=== PATIENT | male | born 1965 | race Hispanic/Latino ===

== ENCOUNTER 2025-05-10 12:45 | Inpatient (IN) | payer MEDICAID, OTHER ==
[2025-05-10] VITALS (17 sets, daily range): BP systolic 133–164; BP diastolic 56–93; PULSE 62–88; RESP 14–18; TEMP 98–98.6; O2SAT 99
[~2025-05-10] VITALS: Ht 162.6 cm; Wt 116.4 kg
--- NOTE | 2025-05-10 13:05 | EKG ---
[facility] Test Date: 2025-05-10 Test Time: 13:00:31 Pat Name: UMU LUCERO Department: EDH Room: ED Gender: M Pipe Maker: [id number] [phone] 1965 Requested By: SHILPA LAWSON Order Number: [id number] Reading MD: Torie Cottrell Measurements Intervals [place] Rate: 67 P: -16 [place]: 201 QRS: -37 QRSD: 106 T: 73 QT: 394 QTc: 417 Interpretive Statements Sinus rhythm Left axis deviation Anterior infarct, old No previous ECG available for comparison Electronically Signed On 05-11-2025 14:07:35 CDT by Torie Cottrell Please click the below link to view image of tracing.
[2025-05-10 13:31] LABS: IMMATURE GRANULOCYTE ABSOLUTE 0.07 K/uL (0-1); NUCLEATED RED BLOOD CELLS 0.0 % (0.0-0.19); PLATELET COUNT (AUTO) 350 K/uL (130-400); RED BLOOD CELL COUNT(AUTO) 4.01 MIL/uL (4.50-6.20); RED CELL DISTRIBUTION WIDTH 12.5 % (11.0-15.5); WHITE BLOOD COUNT (AUTO) 13.4 K/uL (4.8-10.8)
[2025-05-10 13:49] LABS: ASPARTATE AMINOTRANSFERASE 7.0 U/L (10-37); GLOMERULAR FILTR. RATE CALC 6.0 mL/min (>90); GLUCOSE,RANDOM 160.0 mg/dL (70-105); INR 0.96 (0.85-1.15); SODIUM SERUM 130.0 mmol/L (136-145); TOTAL PROTEIN, SERUM 7.8 g/dL (6.0-8.3)
[2025-05-10 13:53] LABS: CREATININE 9.4 mg/dL (0.5-1.3); UREA NITROGEN, BLOOD 105.0 mg/dL (7-18)
--- NOTE | 2025-05-10 14:00 | NUR ---
CRITICAL LAB RESULTS REPORTED TO ER DOCTOR.
--- NOTE | 2025-05-10 15:30 | NUR ---
PLACED IN HWD
[2025-05-10] MEDS ORDERED: LACTULOSE 20 GM/30 ML UDCUP PO PRN (16:00)
[2025-05-10] MEDS ORDERED: DEXTROSE 50%-WATER 50 ML DISP.SYRIN IV PRN (16:00)
[2025-05-10] MEDS ORDERED: NITROGLYCERIN 0.4 MG SL TAB SL PRN (16:00)
[2025-05-10] MEDS ORDERED: guaiFENesin-DM 200/20MG 10ML PO PRN (16:00)
[2025-05-10] MEDS ORDERED: MAG/ALUM/SIMETH 30 ML UDCUP PO PRN (16:00)
[2025-05-10] MEDS ORDERED: GLUCAGON 1MG KIT 1 MG ML IM PRN (16:00)
[2025-05-10] MEDS ORDERED: FAMOTIDINE 20MG VIAL IV PRN (16:00)
[2025-05-10] MEDS ORDERED: MAGNESIUM 2GM PREMIX 50ML 50 ML IV PRN (16:00)
--- NOTE | 2025-05-10 16:02 | ERN ---
ED Note History of Present Illness Stated Complaint: STATES NEEDS DIALYSIS Chief Complaint: Other Problems Time Seen by MD: 12:48 Dictation: 59-year-old male end-stage renal disease on dialysis skipped four days due to the fact that he is from out of town Allergies: Coded Allergies: oxytetracycline (Unverified Allergy, Unknown, 05/10/25) Past Medical History Past Medical History: Diabetes-Type II, Renal Failure Surgical History: LAVA Review of System Dictation Constitutional: Negative for fever,chills, and weight loss Eyes: Negative for injury, pain,redness, and discharge ENT: Negative for injury,pain or swelling Cardiovascular: Negative for chest pain, palpitations, and edema Respiratory: Negative for shortness of breath, cough, and wheezing, Abdomen/GI: Negative for abdominal pain, nausea, vomiting, diarrhea, and constipation Back: Negative for injury and pain : Negative for injury, bleeding and discharge MS/Extremity: Negative for injury and deformity Skin: Negative for rash, and discoloration Neuro: Per HPI Initial Vital Sign VS Vital Signs Date Time Temp Pulse Resp B/P (MAP) Pulse Ox O2 Delivery O2 Flow Rate FiO2 05/10/25 12:46 98.1 70 16 164/78 95 Room Air 0 Physical Exam Dictation General: awake, alert, NAD Head/Face: Normocephalic, atraumatic Eyes: PERRL, EOMI, vision at baseline ENT: oral cavity clear, TMs clear, no signs of infection Neck: Trachea midline, supple, no nuchal rigidity Cardiovascular: RRR, normal S1/S2, No MRGs, no JVD Respiratory: CTAB, no respiratory distress, No rales or wheezes Abdomen: Soft, non-tender, non-distended, normal bowel sounds, no guarding or r ebound. Skin: Warm, dry, normal turgor, no rash MS/Extremity: Pulses equal, no cyanosis, neurovascular intact, FROM Neuro: COAx4, GCS 15, strength 5/5, CN 2-12 intact, normal cerebellar exam, normal gait, Psych: Normal behavior, mood, and affect normal Results (Laboratory/Radiology) Laboratory/Radiology Laboratory Tests Test 05/10/25 13:26 White Blood Count 13.4 K/uL (4.8-10.8) H Red Blood Count 4.01 MIL/uL (4.50-6.20) L Hemoglobin 13.2 g/dL (14.0-18.0) L Hematocrit 39.1 % (42-54) L Mean Corpuscular Volume 97.5 fL (79-99) Mean Corpuscular Hemoglobin 32.9 pg (27.0-33.0) Mean Corpuscular Hemoglobin Concent 33.8 g/dL (32.0-36.0) Red Cell Distribution Width 12.5 % (11.0-15.5) Platelet Count 350 K/uL (130-400) Mean Platelet Volume 10.1 fL (7.5-10.5) Immature Granulocyte % (Auto) 0.5 % (0-1) Neutrophils (%) (Auto) 63.0 % (40.0-77.0) Lymphocytes (%) (Auto) 22.2 % (21.0-51.0) Monocytes (%) (Auto) 7.7 % (3.0-13.0) Eosinophils (%) (Auto) 5.7 % (0.0-8.0) Basophils (%) (Auto) 0.9 % (0.0-5.0) Neutrophils # (Auto) 8.4 K/uL (1.8-7.7) H Lymphocytes # (Auto) 3.0 K/uL (1.0-4.8) Monocytes # (Auto) 1.0 K/uL (0.1-1.0) Eosinophils # (Auto) 0.77 K/uL (0.00-0.70) H Basophils # (Auto) 0.12 K/uL (0.00-0.20) Absolute Immature Granulocyte (auto 0.07 K/uL (0-1) Nucleated Red Blood Cells 0.0 % (0.0-0.19) Prothrombin Time 10.2 SEC (9.6-11.6) Prothromb Time International Ratio 0.96 (0.85-1.15) Activated Partial Thromboplast Time 29.8 SEC (26.3-35.5) Sodium Level 130 mmol/L (136-145) L Potassium Level 6.3 mmol/L (3.5-5.1) *H Chloride Level 99 mmol/L (101-111) L Carbon Dioxide Level 16 mmol/L (21-32) L Blood Urea Nitrogen 105 mg/dL (7-18) *H Creatinine 9.4 mg/dL (0.5-1.3) *H Glomerular Filtration Rate Calc 6 mL/min (>90) Random Glucose 160 mg/dL (70-105) H Total Calcium 7.7 mg/dL (8.5-10.1) L Total Bilirubin 0.4 mg/dL (0.2-1.0) Direct Bilirubin 0.1 mg/dL (0.0-0.3) Aspartate Amino Transf (AST/SGOT) 7 U/L (10-37) L Alanine Aminotransferase (ALT/SGPT) 17 U/L (12-78) Alkaline Phosphatase 97 U/L (50-136) Troponin I High Sensitivity 20 ng/L (4-75) Total Protein 7.8 g/dL (6.0-8.3) Albumin 3.5 g/dL (3.5-5.0) Labs Reviewed?: Yes EKG Comment: Heart rate 67 normal sinus rhythm normal intervals no STEMI ED Course ED Course Orders Procedure Category Date Status Time 12 Lead Ekg Tracing- EKG 05/10/25 Complete Technical 12:55 Basic Metabolic Panel LAB 05/10/25 Complete 12:55 Cbc With Differential LAB 05/10/25 Complete 12:55 Pt And Ptt LAB 05/10/25 Complete 12:55 Troponin I High LAB 05/10/25 Complete Sensitivity 12:55 Hepatic Function Panel LAB 05/10/25 Complete 12:55 Calcium Gluc 1gm PHA 05/10/25 Complete (Calcium Gluc 1gm 14:05 Sodium Bicarb 50meq PHA 05/10/25 Complete 50ml Vial (Sodium Bi 14:30 Current Medications Medications (Trade) Dose Ordered Sig/Javon Route PRN Reason Start Time Stop Time Status Last Admin Dose Admin Calcium Gluconate (Calcium Gluc 1gm Vial) 2 gm PROTOCOL STAT IVPB 05/10/25 14:05 05/10/25 14:07 DC Sodium Bicarbonate (Sodium Bicarb 50meq 50ml Vial) 100 meq ONCE ONCE IV 05/10/25 14:30 05/10/25 14:31 DC Vital Signs Date Time Temp Pulse Resp B/P (MAP) Pulse Ox O2 Delivery O2 Flow Rate FiO2 05/10/25 12:46 98.1 70 16 164/78 95 Room Air 0 Medical Decision Making MDM MDM: Differential diagnosis: Rationale: Tests considered and ordered secondary to shared decision making include: labs, ECG and radiology Previous outside records reviewed: Old ER visits. Risk of complication and/or morbidity or mortality of patient management: None Medications-Per medication reconciliation Need for hospitalization: Patient does meet criteria for hospitalization. Need for emergency major/minor surgery: No There are no social concerns with this patient. Prescription drug management Prescriptions will include symptomatic care Patient's prior external medical records from other ER visits were reviewed by me as indicated. Prior testing and results from previous visits were reviewed. Prior tests were taken into account with medical decision making and resource utilization, independent historian/historians were used to obtain complete medical history. I independently interpreted the test that were performed, results were reviewed by me and considered findings on radiology if ordered. Medical management and examination interpretation discussions were had by me with other qualified healthcare professionals as indicated for the patient's care. 59-year-old end-stage renal disease hyperkalemia admitting to Medicine for dialysis. Critical Care Note Comment(s) Total critical care time was 33 minutes. Excluding time for procedures. Management of critically ill patient with concern for acute decompensation. Management included interpretation of laboratory values and imaging, hemodynamics, time for consultation with consultants and admitting physician. DX & DISP Disposition: Inpatient Departure Impression: Primary Impression: ESRD needing dialysis Additional Impression: Hyperkalemia Condition: Stable Referrals: SELF,REFERRAL (PCP) SHILPA LAWSON MD May 10, 2025 16:02
--- NOTE | 2025-05-10 16:32 | NUR ---
REQUSETED CALCIUM GLUCONATE FROM PHARMACY
[2025-05-10] MEDS: SODIUM BICARB 50MEQ 50ML VIAL IV ONE (16:35)
[2025-05-10] MEDS: CALCIUM GLUC 1GM 2 GM in 0.9%NACL 100ML 100 ML IV SCH (17:04)
[2025-05-10] MEDS: CALCIUM GLUC 1GM/10ML VIAL IVPB STA (17:07)
--- NOTE | 2025-05-10 17:43 | HP ---
[facility] HISTORY AND PHYSICAL Date of Service: May 10, 2025 Time of Service: 17:36 PCP: Dr. Dixon in [place] Admitting: Dr Faust Allergies: Oxy tetracycline HISTORY OF PRESENT ILLNESS: [ Patient is 59 years old male with a past medical history of diabetes, hypertension, hyperlipidemia, kidney disease with dialysis Saturday, gastritis, anxiety, depression, left AV fistula, who came to emergency department in the need of dialysis. Patient stated that normally he lives in the [place] but recently he was notified that his father so [facility]. Patient stated that since normally has dialysis in [place] he was not able to receive any dialysis here in [place] so he decided to come to [facility] for dialysis. Last dialysis was Saturday five days ago. Patient stated that he feels fine he does not believe there is anything going on but he also understands that he has blood in his to be filtrated. Most recent vital signs temperature 98.1 respiration 20 pulse 66 blood pressure 167/90 patient is on room air satting 99%. WBC 13.4 hemoglobin 13.2 hematocrit 39.1 platelets 380 sodium 130 potassium 6.3 CO2 16 creatinine 9.4 BUN 105 GFR six glucose 160 calcium 7.7 troponin negative x1. Patient will be admitted under hospitalist care for further evaluation/recommendations. A.m. labs. Dr. Chávez online project manager will be consulted for dialysis] REVIEW OF SYSTEMS CONSTITUTIONAL: Denies fevers, chills, or night sweats. No unintentional weight loss reported. NEUROLOGICAL: Denies headache, amaurosis fugax, motor weakness, sensory deficit, vertigo/spinning sensation, gait abnormalities, or tremors. ENT: No hearing loss, otalgia, otorrhea, rhinitis, rhinorrhea, hoarseness, or sore throat. CARDIOVASCULAR: Denies any exertional angina, dyspnea on exertion, orthopnea, paroxysmal nocturnal dyspnea, palpitations, life-threatening arrhythmias, claudi cation. PULMONARY: Denies any shortness of breath, cough, phlegm/sputum, hemoptysis, pleuritic chest pain. SLEEP: Denies morning headaches, daytime somnolence or napping. Denies difficulty falling asleep, staying asleep, waking from sleep. Denies knowledge of snoring. GASTROINTESTINAL: Denies any type of dysphagia to either liquids or solids. Denies nausea, vomiting, pyrosis, early satiety, abdominal pain, diarrhea, constipation, or changes in stool consistency or caliber. Denies coffee-ground emesis, hematemesis, hematochezia, or melanotic stools. GENITOURINARY: Denies frequency, urgency, nocturia, hematuria or incontinence (Storage/Irritative symptoms.) Low urinary stream, straining to void, urinary intermittency or hesitancy, splitting of the voiding stream, terminal dribbling. ENDOCRINOLOGIC: Denies polyuria, polydipsia, polyphagia or heat/cold intolerances. HEMATOLOGIC: Denies thrombophilia/previous clots, or coagulopathy/bleeding disorders. ONCOLOGIC: Denies personal history of malignancy. DERMATOLOGIC: Denies rashes or pruritus. PSYCHIATRIC: Denies any suicidal or homicidal ideation. Denies hallucinations. PAST MEDICAL HISTORY: [ ESRD on dialysis Saturday, diabetes, hypertension, hyperlipidemia, gastritis, anxiety, depression ] PAST SURGICAL HISTORY: [ AV fistula left arm ] PAST SOCIAL HISTORY: [ Patient lives in [place] with his family ] FAMILY HISTORY: [ Noncontributory. ] Coded Allergies: oxytetracycline (Unverified Allergy, Unknown, 05/10/25) PHYSICAL EXAM GENERAL APPEARANCE: The patient is awake, alert, and oriented, in no acute cardiopulmonary distress. NEUROLOGICAL: Cranial nerves II-XII grossly intact. Motor is 5/5 in bilateral upper and lower extremities proximal to distal. No sensory deficits. HEENT: Face is symmetric. Pupils are equal and reactive. Extraocular movements are intact. NECK: Supple. No JVD. No thyromegaly. No submental, submandibular, pre- /postauricular, occipital or supraclavicular lymphadenopathy. CHEST: Normal chest expansion. No Telemetry. LUNGS: Absence of any rales, rhonchi or any wheezing. CARDIOVASCULAR: Regular. S1 and S2 normal. No appreciable rubs, murmurs or gallops. ABDOMEN: Soft, nontender, and nondistended. There is no rebound, voluntary guarding, or rigidity. : Deferred. No Bui. EXTREMITIES: Non-edematous and not cyanotic. No clubbing. Good capillary refill. SKIN: No skin breakdown. Vital Sign (Last 24 Hours) 05/10/25 16:00 Temp 98.1 Pulse 66 Resp 20 B/P (MAP) 167/90 Pulse Ox 99 O2 Delivery Room Air* O2 Flow Rate 0 FiO2 21 LABS: Laboratory: Test 05/10/25 16:45 05/10/25 13:26 Range/Units Whole Blood Glucose 136 H 70-110 MG/DL White Blood Count 13.4 H 4.8-10.8 K/uL Red Blood Count 4.01 L 4.50-6.20 MIL/uL Hemoglobin 13.2 L 14.0-18.0 g/dL Hematocrit 39.1 L 42-54 % Mean Corpuscular Volume 97.5 79-99 fL Mean Corpuscular Hemoglobin 32.9 27.0-33.0 pg Mean Corpuscular Hemoglobin Concent 33.8 32.0-36.0 g/dL Red Cell Distribution Width 12.5 11.0-15.5 % Platelet Count 350 130-400 K/uL Mean Platelet Volume 10.1 7.5-10.5 fL Immature Granulocyte % (Auto) 0.5 0-1 % Neutrophils (%) (Auto) 63.0 40.0-77.0 % Lymphocytes (%) (Auto) 22.2 21.0-51.0 % Monocytes (%) (Auto) 7.7 3.0-13.0 % Eosinophils (%) (Auto) 5.7 0.0-8.0 % Basophils (%) (Auto) 0.9 0.0-5.0 % Neutrophils # (Auto) 8.4 H 1.8-7.7 K/uL Lymphocytes # (Auto) 3.0 1.0-4.8 K/uL Monocytes # (Auto) 1.0 0.1-1.0 K/uL Eosinophils # (Auto) 0.77 H 0.00-0.70 K/uL Basophils # (Auto) 0.12 0.00-0.20 K/uL Absolute Immature Granulocyte (auto 0.07 0-1 K/uL Nucleated Red Blood Cells 0.0 0.0-0.19 % Prothrombin Time 10.2 9.6-11.6 SEC Prothromb Time International Ratio 0.96 0.85-1.15 Activated Partial Thromboplast Time 29.8 26.3-35.5 SEC Sodium Level 130 L 136-145 mmol/L Potassium Level 6.3 *H 3.5-5.1 mmol/L Chloride Level 99 L 101-111 mmol/L Carbon Dioxide Level 16 L 21-32 mmol/L Blood Urea Nitrogen 105 *H 7-18 mg/dL Creatinine 9.4 *H 0.5-1.3 mg/dL Glomerular Filtration Rate Calc 6 >90 mL/min Random Glucose 160 H 70-105 mg/dL Total Calcium 7.7 L 8.5-10.1 mg/dL Total Bilirubin 0.4 0.2-1.0 mg/dL Direct Bilirubin 0.1 0.0-0.3 mg/dL Aspartate Amino Transf (AST/SGOT) 7 L 10-37 U/L Alanine Aminotransferase (ALT/SGPT) 17 12-78 U/L Alkaline Phosphatase 97 50-136 U/L Troponin I High Sensitivity 20 4-75 ng/L Total Protein 7.8 6.0-8.3 g/dL Albumin 3.5 3.5-5.0 g/dL Current Medications Medications (Trade) Dose Ordered Sig/Javon Route PRN Reason Start Time Stop Time Status Last Admin Dose Admin Acetaminophen (TYLenol 325MG TAB) 650 mg Q4H PRN PO MILD PAIN (1-3) 05/10/25 16:00 06/09/25 15:59 Acetaminophen (TYLenol 325MG TAB) 650 mg Q6H PRN PO MILD PAIN (1-3) 05/10/25 16:00 05/10/25 15:57 DC Acetaminophen (TYLenol 325MG TAB) 650 mg Q6H PRN PO TEMPERATURE GREATER THAN 101.5 05/10/25 16:00 06/09/25 15:59 Al Hydroxide/Mg Hydroxide (MAALox PLUS 30ML) 30 ml Q6H PRN PO INDIGESTION 05/10/25 16:00 06/09/25 15:59 Calcium Gluconate (Calcium Gluc 1gm Vial) 2 gm PROTOCOL STAT IVPB 05/10/25 14:05 05/10/25 14:07 DC Calcium Gluconate 2 gm/Sodium Chloride 100 ml @ 50 mls/hr ONCE IV 05/10/25 17:00 05/10/25 22:00 05/10/25 17:06 50 MLS/HR Dextrose (D50w) 50 ml AD PRN IV HYPOGLYCEMIA PROTOCOL 05/10/25 16:00 06/09/25 15:59 Diphenhydramine HCl (BENAdryl INJ) 25 mg Q6H PRN IV SEVERE ITCHING/RASH 05/10/25 16:00 06/09/25 15:59 Famotidine (Pepcid 20mg Vial) 20 mg BID IV 05/10/25 21:00 06/09/25 20:59 Famotidine (Pepcid 20mg Vial) 20 mg BID PRN IV NAUSEA/VOMITING 05/10/25 16:00 05/10/25 15:57 DC Glucagon (Glucagon 1mg Kit) 1 mg AD PRN IM HYPOGLYCEMIA PROTOCOL 05/10/25 16:00 06/09/25 15:59 Guaifenesin/ Dextromethorphan (RobiTUSSin DM 200/20MG 10ML) 10 ml Q4H PRN PO COUGH 05/10/25 16:00 06/09/25 15:59 Hydralazine HCl (APRESOLine 20MG INJ) 10 mg Q6H PRN IV For:SBP above 160;DBP above 90 05/10/25 16:00 06/09/25 15:59 Insulin Human Regular (humuLIN R 100 UNIT/ML 3ML) INSULIN SLIDING SCAL... ACHS SQ 05/10/25 16:30 06/09/25 16:29 Ketorolac Tromethamine (toRADol) 15 mg Q8H PRN IV MODERATE PAIN (4-6) 05/10/25 16:00 05/15/25 15:59 Lactulose (Constulose 20gm/ 30ml Udcup) 20 gm BID PRN PO CONSTIPATION 05/10/25 16:00 06/09/25 15:59 Magnesium Sulfate 50 ml @ 0 mls/hr PROTOCOL PRN IV other 05/10/25 16:00 06/09/25 15:59 Morphine Sulfate (morPHINE 2MG SYG) 1 mg Q4H PRN IVP SEVERE PAIN (7-10) 05/10/25 16:00 05/17/25 15:59 Nitroglycerin (Nitrostat) 0.4 mg PROTOCOL PRN SL CHEST PAIN 05/10/25 16:00 06/09/25 15:59 Ondansetron HCl (zoFRAN 4MG INJ) 4 mg Q6H PRN IV NAUSEA/VOMITING 05/10/25 16:00 06/09/25 15:59 Zolpidem Tartrate (AmbIEN) 5 mg HS PRN PO INSOMNIA 05/10/25 16:00 06/09/25 15:59 DIAGNOSTICS / RADIOLOGY: [ ] ASSESSMENT: [ In need of emergency dialysis POA ESRD on dialysis Saturday POA Uncontrolled diabetes mellitus type 2 with hyperglycemia POA Uncontrolled hypertension POA Hyperlipidemia POA Gastritis POA Anxiety POA Depression POA Left arm AV fistula Leukocytosis WBC 13.4 Electrolyte imbalance hyponatremia 130 ] PLAN: [ Patient will be admitted to medical-surgical floor with telemetry Nephrology consultation for ESRD needing dialysis A.m. labs Chest x-ray Urinalysis Heparin per for prophylaxis Hyper and hypoglycemia protocol Hypomagnesemia protocol Medication reconciliation to be performed once medication will be entered to the computer ] ADVANCED CARE PLANNING 1. Which of the following were discussed? Hospice Care - Yes / No Therapeutic options - Yes / No Advance Directives - Yes / No Other discussions - 2. Discussed with who? Patient 3. Voluntary nature of this service was explained to the patient? Yes / No 4. Amount of time spent - ___ more than 35 minutes ____ 5. Reviewed by Physician? (if this service was performed by NPP) Yes / No ATTESTATION BY PHYSICIAN I have seen and examined the patient. I reviewed the documentation, medical decision making, and treatment plan as noted by the mid-level provider above. I agree with the findings and plan of care. RAMANDEEP Fernandez MD DIRECTOR OF GLOBAL SALES May 10, 2025 17:43
--- NOTE | 2025-05-10 17:52 | NUR ---
NEPHRO DR HERRERA CALLED BACK. STAT DIALYSIS FOR THE PATIENT AND INFORM THE DIALYSIS TEAM.
--- NOTE | 2025-05-10 18:00 | NUR ---
CONTENT DEVELOPER WARP TESTER CALLED AT THIS TIME TO NOTIFY OF EMERGENT DIALYSIS./FAUSTINO
--- NOTE | 2025-05-10 18:10 | NUR ---
REPORT GIVEN TO BANDAR
[2025-05-10] MEDS: FAMOTIDINE 20MG VIAL IV SCH (20:01)
[2025-05-10] MEDS: 0.9%NACL 1000ML 1,000 ML IV SCH (20:02)
[2025-05-11] VITALS: BP 153/77; PULSE 89; RESP 24; TEMP 98.8
[2025-05-11 04:00] VITALS: BP 147/90; PULSE 74; RESP 24; TEMP 97.9
--- NOTE | 2025-05-11 07:04 | CONS ---
REASON FOR CONSULTATION: This patient is brought in with severe hyperkalemia. HISTORY OF PRESENT ILLNESS: This patient has end-stage renal disease, on dialysis but has missed dialysis. [place] is [place] of state, did not make arrangements when he came here. He came for emergency in this area. The patient has underlying diabetes, hypertension, hyperlipidemia, anxiety, depression, and anemia. The patient goes to dialysis usually on Saturday, Saturday, and Saturday. No other associated symptoms. No other aggravating or relieving factors. PAST MEDICAL HISTORY: Diabetes, hypertension, anemia, end-stage renal disease, hyperlipidemia, anxiety, and depression. PAST SURGICAL HISTORY: AV access. SOCIAL HISTORY: No smoking, alcohol, or drug abuse reported. FAMILY HISTORY: Negative. ALLERGIES: TETRACYCLINE REPORTED. REVIEW OF SYSTEMS: CONSTITUTIONAL: Has been weak. No fever, chills, or rigors. HEENT: With no headache, oral ulcer, sore throat, or difficulty swallowing. RESPIRATORY: With no cough, expectoration, hemoptysis, or pleuritic pain. CARDIOVASCULAR: Has shortness of breath. No orthopnea or PND. GASTROINTESTINAL: Negative for nausea, vomiting, or diarrhea. GENITOURINARY: Negative for dysuria or hematuria. DERMATOLOGIC: With no rashes, pruritus, or skin lesion. ENDOCRINE: No polyuria, polydipsia, or polyphagia. PSYCHIATRIC: Negative for anxiety, depression, or hallucinations. NEUROLOGIC: No seizures or syncope. Other systemic review is unchanged. PHYSICAL EXAMINATION: GENERAL: Pale, in no other distress. VITAL SIGNS: Blood pressure is 167/90, pulse is 66, respiratory rate is 20. HEENT: Head is atraumatic, normocephalic. Pupils are round and reactive to light. Sclerae are anicteric. Conjunctivae not pale. Oral mucosa is not dry. NECK: Supple. No masses or bruits. Thyroid is palpable. Neck has no bruits. CHEST: Shows diminished at both bases, prolonged expiration and percussion note being resonant in all areas. CARDIAC: Regular rhythm. No rub, no S3 or S4, no parasternal heave. ABDOMEN: No guarding or tenderness. Bowel sounds normoactive. No free fluid. EXTREMITIES: With no edema and no cyanosis or clubbing. BACK: No tenderness or back deformities. SKIN: No other petechial rashes noted on inspection or palpation. BACK: No tenderness or back deformities. NEUROLOGIC: Unchanged, nonfocal. No cranial nerve palsies. LABORATORY DATA: Labs have been reviewed in detail with a hemoglobin of 13, white cell count of 13.4. The patient has very markedly elevated potassium of 6.3, low CO2 of 16, BUN of 105, creatinine 9.4. IMAGING STUDIES: Personally reviewed. Old records reviewed. I have discussed with other team members. PROBLEMS: * The patient has severe hyperkalemia. * Has fluid overload. * Underlying diabetic nephropathy. * Hypertension. * End-stage renal disease. * Anemia and leukocytosis. * Underlying multiple other comorbidities. * The [place] state, did not arrange dialysis in this area and has missed dialysis for past 5 days. PLAN: * The patient is being admitted. * We will arrange urgent dialysis. * IV calcium gluconate can be given. * Lokelma for hyperkalemia. * Low-potassium renal diet is suggested. * Intake, output, weight monitoring. * Follow up on electrolytes. * The patient's condition remains guarded. We have been following up closely. Nephro-Xavi one a day, IV Dilaudid 0.5 q.6 h. for pain. We have reviewed the lab, x-rays, imaging studies personally. We have discussed with other team physician. Any old external records have been reviewed. Condition is critical and guarded. The patient was seen several times, on and off dialysis. Thank you for this patient. TID: [id number] RECEIPT: [id number]
[2025-05-11 08:00] VITALS: BP 119/76; PULSE 74; RESP 18; TEMP 97.6
[2025-05-11 08:00] LABS: IMMATURE GRANULOCYTE ABSOLUTE 0.06 K/uL (0-1); NUCLEATED RED BLOOD CELLS 0.0 % (0.0-0.19); PLATELET COUNT (AUTO) 311 K/uL (130-400); RED BLOOD CELL COUNT(AUTO) 3.81 MIL/uL (4.50-6.20); RED CELL DISTRIBUTION WIDTH 12.6 % (11.0-15.5); WHITE BLOOD COUNT (AUTO) 11.8 K/uL (4.8-10.8)
[2025-05-11 08:19] LABS: ASPARTATE AMINOTRANSFERASE 7.0 U/L (10-37); CREATINE KINASE, TOTAL 50.0 U/L (21-232); CREATININE 7.0 mg/dL (0.5-1.3); GLOMERULAR FILTR. RATE CALC 8.0 mL/min (>90); GLUCOSE,RANDOM 205.0 mg/dL (70-105); PHOSPHORUS 5.5 mg/dL (2.5-4.9); SODIUM SERUM 135.0 mmol/L (136-145); TOTAL PROTEIN, SERUM 7.1 g/dL (6.0-8.3); UREA NITROGEN, BLOOD 68.0 mg/dL (7-18)
--- NOTE | 2025-05-11 09:16 | NUR ---
PATIENT STATES THAT HE WANTS TO LEAVE AMA. INFORMED PATIENT ON RISKS OF LEAVING BEFORE BEING CLEARED BY A PHYSICIAN. INFORMED PATIENT THAT DR. HERRERA IS ON HIS WAY, PATIENT AGREED TO WAIT TO LEAVE UNTIL HE SPEAKS TO DR. HERRERA.
--- NOTE | 2025-05-11 09:32 | PN ---
[facility] PROGRESS NOTE Date of Service: May 11, 2025 Time of Service: 09:27 SUBJECTIVE: [ ] Patient is 59 years old male with a past medical history of diabetes, hypertension, hyperlipidemia, kidney disease with dialysis Saturday, gastritis, anxiety, depression, left AV fistula, who came to emergency department in the need of dialysis. Patient stated that normally he lives in the [place] but recently he was notified that his father so he came to [place] bur[place] his father. Patient stated that since normally has dialysis in [place] he was not able to receive any dialysis here in [place] so he decided to come to [facility] for dialysis. Last dialysis was Saturday five days ago. Patient stated that he feels fine he does not believe there is anything going on but he also understands that he has blood in his to be filtrated. 05/11/2025 REVIEW OF SYSTEMS CONSTITUTIONAL: Denies fevers, chills, or night sweats. No unintentional weight loss reported. NEUROLOGICAL: Denies headache, amaurosis fugax, motor weakness, sensory deficit, vertigo/spinning sensation, gait abnormalities, or tremors. ENT: No hearing loss, otalgia, otorrhea, rhinitis, rhinorrhea, hoarseness, or sore throat. CARDIOVASCULAR: Denies any exertional angina, dyspnea on exertion, orthopnea, paroxysmal nocturnal dyspnea, palpitations, life-threatening arrhythmias, claudication. PULMONARY: Denies any shortness of breath, cough, phlegm/sputum, hemoptysis, pleuritic chest pain. SLEEP: Denies morning headaches, daytime somnolence or napping. Denies difficulty falling asleep, staying asleep, waking from sleep. Denies knowledge of snoring. GASTROINTESTINAL: Denies any type of dysphagia to either liquids or solids. Denies nausea, vomiting, pyrosis, early satiety, abdominal pain, diarrhea, constipation, or changes in stool consistency or caliber. Denies coffee-ground emesis, hematemesis, hematochezia, or melanotic stools. GENITOURINARY: Denies frequency, urgency, nocturia, hematuria or incontinence (Storage/Irritative symptoms.) Low urinary stream, straining to void, urinary intermittency or hesitancy, splitting of the voiding stream, terminal dribbling. ENDOCRINOLOGIC: Denies polyuria, polydipsia, polyphagia or heat/cold intolerances. HEMATOLOGIC: Denies thrombophilia/previous clots, or coagulopathy/bleeding disorders. ONCOLOGIC: Denies personal history of malignancy. DERMATOLOGIC: Denies rashes or pruritus. PSYCHIATRIC: Denies any suicidal or homicidal ideation. Denies hallucinations. PHYSICAL EXAM GENERAL APPEARANCE: The patient is awake, alert, and oriented, in no acute cardiopulmonary distress. NEUROLOGICAL: Cranial nerves II-XII grossly intact. Motor is 5/5 in bilateral upper and lower extremities proximal to distal. No sensory deficits. HEENT: Face is symmetric. Pupils are equal and reactive. Extraocular movements are intact. NECK: Supple. No JVD. No thyromegaly. No submental, submandibular, pre- /postauricular, occipital or supraclavicular lymphadenopathy. CHEST: Normal chest expansion. No Telemetry. LUNGS: Absence of any rales, rhonchi or any wheezing. CARDIOVASCULAR: Regular. S1 and S2 normal. No appreciable rubs, murmurs or gallops. ABDOMEN: Soft, nontender, and nondistended. There is no rebound, voluntary guarding, or rigidity. : Deferred. No Bui. EXTREMITIES: Non-edematous and not cyanotic. No clubbing. Good capillary refill. SKIN: No skin breakdown. Vital Signs (last 8hr) Date Time Temp Pulse Resp B/P (MAP) Pulse Ox O2 Delivery O2 Flow Rate FiO2 05/11/25 08:00 97.5 74 18 119/76 93 Room Air 05/11/25 04:00 97.9 74 24 147/90 93 Room Air LABS: Laboratory: Test 05/11/25 07:55 05/11/25 07:40 05/10/25 20:12 05/10/25 13:26 Range/Units White Blood Count 11.8 H 4.8-10.8 K/uL Red Blood Count 3.81 L 4.50-6.20 MIL/uL Hemoglobin 12.4 L 14.0-18.0 g/dL Hematocrit 35.7 L 42-54 % Mean Corpuscular Volume 93.7 79-99 fL Mean Corpuscular Hemoglobin 32.5 27.0-33.0 pg Mean Corpuscular Hemoglobin Concent 34.7 32.0-36.0 g/dL Red Cell Distribution Width 12.6 11.0-15.5 % Platelet Count 311 130-400 K/uL Mean Platelet Volume 10.4 7.5-10.5 fL Immature Granulocyte % (Auto) 0.5 0-1 % Neutrophils (%) (Auto) 66.2 40.0-77.0 % Lymphocytes (%) (Auto) 19.3 L 21.0-51.0 % Monocytes (%) (Auto) 9.2 3.0-13.0 % Eosinophils (%) (Auto) 4.0 0.0-8.0 % Basophils (%) (Auto) 0.8 0.0-5.0 % Neutrophils # (Auto) 7.8 H 1.8-7.7 K/uL Lymphocytes # (Auto) 2.3 1.0-4.8 K/uL Monocytes # (Auto) 1.1 H 0.1-1.0 K/uL Eosinophils # (Auto) 0.47 0.00-0.70 K/uL Basophils # (Auto) 0.09 0.00-0.20 K/uL Absolute Immature Granulocyte (auto 0.06 0-1 K/uL Nucleated Red Blood Cells 0.0 0.0-0.19 % Sodium Level 135 L 136-145 mmol/L Potassium Level 4.1 3.5-5.1 mmol/L Chloride Level 97 L 101-111 mmol/L Carbon Dioxide Level 26 21-32 mmol/L Blood Urea Nitrogen 68 #H 7-18 mg/dL Creatinine 7.0 H 0.5-1.3 mg/dL Glomerular Filtration Rate Calc 8 >90 mL/min Random Glucose 205 H 70-105 mg/dL Lactic Acid Level 1.5 0.8-2.5 mmol/L Total Calcium 8.2 L 8.5-10.1 mg/dL Phosphorus Level 5.5 H 2.5-4.9 mg/dL Magnesium Level 2.00 1.80-2.40 mg/dL Total Bilirubin 0.4 0.2-1.0 mg/dL Direct Bilirubin 0.1 0.0-0.3 mg/dL Aspartate Amino Transf (AST/SGOT) 7 L 10-37 U/L Alanine Aminotransferase (ALT/SGPT) 17 12-78 U/L Alkaline Phosphatase 94 50-136 U/L Total Creatine Kinase 50 21-232 U/L B-Type Natriuretic Peptide 265 H 0-100 pg/mL Total Protein 7.1 6.0-8.3 g/dL Albumin 3.1 L 3.5-5.0 g/dL Whole Blood Glucose 191 H 70-110 MG/DL Hepatitis B Surface Antigen. Non-Reactive Nonreactive Prothrombin Time 10.2 9.6-11.6 SEC Prothromb Time International Ratio 0.96 0.85-1.15 Activated Partial Thromboplast Time 29.8 26.3-35.5 SEC Troponin I High Sensitivity 20 4-75 ng/L Current Medications Medications (Trade) Dose Ordered Sig/Javon Route PRN Reason Start Time Stop Time Status Last Admin Dose Admin Acetaminophen (TYLenol 325MG TAB) 650 mg Q4H PRN PO MILD PAIN (1-3) 05/10/25 16:00 06/09/25 15:59 Acetaminophen (TYLenol 325MG TAB) 650 mg Q6H PRN PO MILD PAIN (1-3) 05/10/25 16:00 05/10/25 15:57 DC Acetaminophen (TYLenol 325MG TAB) 650 mg Q6H PRN PO TEMPERATURE GREATER THAN 101.5 05/10/25 16:00 06/09/25 15:59 Al Hydroxide/Mg Hydroxide (MAALox PLUS 30ML) 30 ml Q6H PRN PO INDIGESTION 05/10/25 16:00 06/09/25 15:59 Calcium Gluconate (Calcium Gluc 1gm Vial) 2 gm PROTOCOL STAT IVPB 05/10/25 14:05 05/10/25 14:07 DC Calcium Gluconate 2 gm/Sodium Chloride 100 ml @ 50 mls/hr ONCE IV 05/10/25 17:00 05/10/25 22:00 DC 05/10/25 17:06 50 MLS/HR Dextrose (D50w) 50 ml AD PRN IV HYPOGLYCEMIA PROTOCOL 05/10/25 16:00 06/09/25 15:59 Diphenhydramine HCl (BENAdryl INJ) 25 mg Q6H PRN IV SEVERE ITCHING/RASH 05/10/25 16:00 06/09/25 15:59 Famotidine (Pepcid 20mg Vial) 20 mg BID IV 05/10/25 21:00 06/09/25 20:59 05/11/25 08:04 20 MG Famotidine (Pepcid 20mg Vial) 20 mg BID PRN IV NAUSEA/VOMITING 05/10/25 16:00 05/10/25 15:57 DC Glucagon (Glucagon 1mg Kit) 1 mg AD PRN IM HYPOGLYCEMIA PROTOCOL 05/10/25 16:00 06/09/25 15:59 Guaifenesin/ Dextromethorphan (RobiTUSSin DM 200/20MG 10ML) 10 ml Q4H PRN PO COUGH 05/10/25 16:00 06/09/25 15:59 Hydralazine HCl (APRESOLine 20MG INJ) 10 mg Q6H PRN IV For:SBP above 160;DBP above 90 05/10/25 16:00 06/09/25 15:59 Insulin Human Regular (humuLIN R 100 UNIT/ML 3ML) INSULIN SLIDING SCAL... ACHS SQ 05/10/25 16:30 06/09/25 16:29 05/11/25 07:58 4 UNIT Ketorolac Tromethamine (toRADol) 15 mg Q8H PRN IV MODERATE PAIN (4-6) 05/10/25 16:00 05/15/25 15:59 Lactulose (Constulose 20gm/ 30ml Udcup) 20 gm BID PRN PO CONSTIPATION 05/10/25 16:00 06/09/25 15:59 Magnesium Sulfate 50 ml @ 0 mls/hr PROTOCOL PRN IV other 05/10/25 16:00 06/09/25 15:59 Morphine Sulfate (morPHINE 2MG SYG) 1 mg Q4H PRN IVP SEVERE PAIN (7-10) 05/10/25 16:00 05/17/25 15:59 Nitroglycerin (Nitrostat) 0.4 mg PROTOCOL PRN SL CHEST PAIN 05/10/25 16:00 06/09/25 15:59 Ondansetron HCl (zoFRAN 4MG INJ) 4 mg Q6H PRN IV NAUSEA/VOMITING 05/10/25 16:00 06/09/25 15:59 Sodium Chloride 1,000 ml @ 0 mls/hr ONCE IV 05/10/25 18:30 05/11/25 18:29 05/10/25 20:02 999 MLS/HR Zolpidem Tartrate (AmbIEN) 5 mg HS PRN PO INSOMNIA 05/10/25 16:00 06/09/25 15:59 DIAGNOSTICS / RADIOLOGY: [ ] ASSESSMENT: [ In need of emergency dialysis POA ESRD on dialysis Saturday POA Uncontrolled diabetes mellitus type 2 with hyperglycemia POA Uncontrolled hypertension POA Hyperlipidemia POA Gastritis POA Anxiety POA Depression POA Left arm AV fistula Leukocytosis Electrolyte imbalance hyponatremia ] Moderate protein calorie malnutrition Obesity BMI 44.1 PLAN: [ Patient will be admitted to medical-surgical floor with telemetry Nephrology consultation for ESRD needing dialysis Fluid restriction strict I&Os daily weight A.c. HS monitoring with sliding coverage Replace electrolytes as needed to keep magnesium above 2.0 potassium above 4.0 renal dose. A.m. labs CBC CMP magnesium Supportive measures DVT GI prophylaxis Home medication pending to be reviewed by RN. Medication reconciliation to be performed once medication will be entered to the computer ] Further orders as per response to treatment All questions addressed ATTESTATION BY PHYSICIAN I have seen and examined the patient. I reviewed the documentation, medical dec ision making, and treatment plan as noted by the mid-level provider above. I agree with the findings and plan of care. BYRON TORRES MD, ELIZABETH NP May 11, 2025 09:32
--- NOTE | 2025-05-11 09:43 | NUR ---
PATIENT DID NOT WAIT TO SEE DR. HERRERA. PATIENT SIGNED AMA FORM. INFORMED PATIENT ON THE RISKS OF LEAVING BEFORE BEING SEEN BY A PHYSICIAN, PATIENT STILL WANTED TO LEAVE. REMOVED IV, PATIENT HAD ALL BELONGINGS WITH HIM.
[2025-05-11 09:45] VITALS: BP 90/56; PULSE 78; RESP 18; TEMP 97.6
--- NOTE | 2025-05-11 09:45 | NUR ---
NOTIFIED DR. TORRES THAT PATIENT LEFT AMA.
--- NOTE | 2025-05-11 10:53 | DS ---
Discharge Summary Hospital Course Summary: Date of Service: May 10, 2025 Time of Service: 17:36 PCP: Dr. Dixon in [place] Admitting: Dr Faust Allergies: Oxy tetracycline HISTORY OF PRESENT ILLNESS: [ Patient is 59 years old male with a past medical history of diabetes, hypertension, hyperlipidemia, kidney disease with dialysis Saturday, gastritis, anxiety, depression, left AV fistula, who came to emergency department in the need of dialysis. Patient stated that normally he lives in the [place] but recently he was notified that his father so he came to [place] bur[place] his father. Patient stated that since normally has dialysis in [place] he was not able to receive any dialysis here in [place] so he decided to come to [facility] for dialysis. Last dialysis was Saturday five days ago. Patient stated that he feels fine he does not believe there is anything going on but he also understands that he has blood in his to be filtrated. Most recent vital signs temperature 98.1 respiration 20 pulse 66 blood pressure 167/90 patient is on room air satting 99%. WBC 13.4 hemoglobin 13.2 hematocrit 39.1 platelets 380 sodium 130 potassium 6.3 CO2 16 creatinine 9.4 BUN 105 GFR six glucose 160 calcium 7.7 troponin negative x1. Patient will be admitted under hospitalist care for further evaluation/recommendations. A.m. labs. Dr. Chávez tub operator will be consulted for dialysis] 05/11/2025 PATIENT LEFT AMA Assessment/Plan: Discharged Dx [ In need of emergency dialysis POA ESRD on dialysis Saturday POA Uncontrolled diabetes mellitus type 2 with hyperglycemia POA Uncontrolled hypertension POA Hyperlipidemia POA Gastritis POA Anxiety POA Depression POA Left arm AV fistula Leukocytosis Electrolyte imbalance hyponatremia ] Moderate protein calorie malnutrition Obesity BMI 44.1 PLAN: LEFT AMA Home Medications: No Active Prescriptions or Reported Meds ATTESTATION BY PHYSICIAN I have seen and examined the patient. I reviewed the documentation, medical decision making, and treatment plan as noted by the mid-level provider above. I agree with the findings and plan of care. BYRON FAUST MD, ELIZABETH NP May 11, 2025 10:52
--- NOTE | 2025-05-11 20:56 | PN ---
NEPHROLOGY FOLLOWUP NOTE SUBJECTIVE: This patient has multiple problems. The patient has renal failure, hyperkalemia, and noncompliance. Seen in the morning. The patient has diabetes, hypertension, hyperlipidemia, and dialysis not done regularly. The patient did not arrange it. The patient has severe hyperkalemia on admission. The patient has leukocytosis. No other localizing findings. REVIEW OF SYSTEMS: GENERAL: No fevers, chills, or rigors. HEENT: With no headache. No oral ulcers, sore throat, or difficulty swallowing. RESPIRATORY: With no cough, expectoration, hemoptysis, or pelvic pain. CARDIOVASCULAR: No orthopnea or PND. GASTROINTESTINAL: Negative for nausea, vomiting or diarrhea reported. GENITOURINARY: Negative for dysuria or hematuria. DERMATOLOGICAL: No rashes, pruritus or skin lesion. ENDOCRINE: No polyuria, polydipsia, or polyphagia. PSYCHIATRIC: Negative for anxiety, depression or hallucination. PHYSICAL EXAMINATION: GENERAL: Pale, no other distress. VITAL SIGNS: Blood pressure is 119/76, pulse 74, respiratory rate is 18, afebrile. HEENT: Head is atraumatic, normocephalic. Pupils are round and reactive. Sclerae anicteric. Conjunctivae not pale. Oral mucosa is not dry. NECK: Without masses or bruits. Thyroid is palpable. Neck has no bruits. LUNGS: Shows equal to thoracic percussion note being resonant in all areas. CARDIAC: Regular rhythm. No rub. No S3, S4. No parasternal heave. ABDOMEN: No guarding or tenderness. Bowel sounds normoactive. No free fluid. EXTREMITIES: With no edema. No cyanosis or clubbing. BACK: No CVA tenderness or back deformities. LABORATORY DATA: We have reviewed available labs in detail. Labs have shown the patient has hemoglobin 12.4, white cell count is elevated. Potassium intermittently high. Other electrolytes reviewed. Albumin is 3.1. PROBLEMS: * Renal failure. * Anemia. * Severe hyperkalemia on admission. * Fluid overload. * Noncompliance. PLAN: The patient has missed dialysis before. We will consult oncology social worker. The patient is wanting to go out of the hospital. He has no arrangement for outpatient dialysis. Intake, output, and weight to be monitored. Low phosphorus diet is advised. Fluid restriction is advised. Intake, output, and weight will be monitored. Nonsteroidal drugs to be avoided. The patient can be given IV Dilaudid 0.5 every 6 hours p.r.n. for pain. We have discussed with other team physician. Old records have been reviewed. X-ray and labs were personally reviewed and interpreted. Total time spent today was more than 45 minutes today. Thank you for this patient. TID: [id number] RECEIPT: [id number] [facility]
[2025-05-12 13:31] LABS: HEPATITIS B CORE AB TOTAL Non-Reactive (Nonreactive); HEPATITIS B SURFACE ANTIBODY Positive (Reactive)
== END 2025-05-11 10:15 | disposition left against medical advice (07) | DRG 425 ==
LOC: EEVIPCON 12:45 → EDH 12:45 → EDHIP 12:46
PROVIDERS: ADMIT Internal Medicine; ATTEND Internal Medicine
PROC: 5A1D70Z Performance of Urinary Filtration, Intermittent, Less than 6 Hours Per Day (ICD-10-PCS; principal; 2025-05-10)
DX: E87.5 Hyperkalemia (principal); I12.0 Hypertensive chronic kidney disease with stage 5 chronic kidney disease or end stage renal disease; E44.0 Moderate protein-calorie malnutrition; E11.22 Type 2 diabetes mellitus with diabetic chronic kidney disease; D64.9 Anemia, unspecified; E87.1 Hypo-osmolality and hyponatremia; E11.65 Type 2 diabetes mellitus with hyperglycemia; E87.70 Fluid overload, unspecified; D72.829 Elevated white blood cell count, unspecified; E78.5 Hyperlipidemia, unspecified; F32.A Depression, unspecified; F41.9 Anxiety disorder, unspecified; K29.70 Gastritis, unspecified, without bleeding; N18.6 End stage renal disease; Z53.29 Procedure and treatment not carried out because of patient's decision for other reasons; Z63.4 Disappearance and death of family member; Z91.199 Patient's noncompliance with other medical treatment and regimen due to unspecified reason; Z99.2 Dependence on renal dialysis; Z68.41 Body mass index [BMI] 40.0-44.9, adult; Z79.899 Other long term (current) drug therapy
CPT/HCPCS: 36415; 80048; 80076; 82550; 82948; 83605; 83735; 83880; 84100; 84145; 84484; 85025; 85610; 85730; 86704; 86706; 87340; 90935; 93005; 99291; G0378; J0612; J1815; J3490